=== PATIENT | female | born 1990 ===

== ENCOUNTER 2021-12-05 05:29 | Day surgery (SDC) | payer OTHER ==
[~2021-12-05] VITALS: Ht 162.6 cm; Wt 53.0 kg
[2021-12-05 06:21] VITALS: BP 113/73; PULSE 73; TEMP 98.3
[2021-12-05] MEDS ORDERED: PRENATAL TABLET PO (06:52)
[2021-12-05 08:17] VITALS: BP 100/62; PULSE 71; TEMP 97.6
--- NOTE | 2021-12-05 08:29 | NUR ---
PT RETURNS TO ROOM 8 PER CART. DROWSY. RESTING QUIETLY. SPOUSE IN ROOM. POST OP SHOE ON LEFT FOOT. DRESSING D/I. IV CONTINUES IN RIGHT HAND.
[2021-12-05 08:32] VITALS: BP 113/73; PULSE 58
[2021-12-05 08:47] VITALS: BP 99/73; PULSE 58
--- NOTE | 2021-12-05 09:01 | NUR ---
PATIENT STILL SLEEPY. AWAKENS TO VERBAL STIMULI. RESTS QUIETLY. IV FLUIDS CONTINUE AT TKO.
--- NOTE | 2021-12-05 09:05 | NUR ---
PATIENT STILL RESTING QUIETLY. VS CONTINUE TO BE MONITORED. SPOUSE REMAINS AT BEDSIDE. IV FLUIDS CONTINUE.
--- NOTE | 2021-12-05 11:28 | NUR ---
PT GIVEN DISCHARGE INSTRUCTIONS WITH VERBAL UNDERSTANDING. ASSIST TO WHEELCHAIR. DISCHARGE FOLDER GIVEN TO SPOUSE. TAKEN TO PATIENT ENTRANCE AND ASSIST TO PRIVATE VEHICLE.
== END 2021-12-05 10:28 | disposition home or self-care (01) ==
LOC: SDCO 05:29
DX: M21.272 Flexion deformity, left ankle and toes (principal)
CPT/HCPCS: C1713; J0690; J1885; J2250; J2704; J3010; J7120